=== PATIENT | male | born 1975 | race African-American/Black ===

== ENCOUNTER 2017-04-13 05:38 | Observation (INO) ==
[2017-04-06 13:18] LABS: Basophils % 0.7 % (0.0-0.8); Eosinophils # 0.4 10*3/uL (0.0-0.87); Eosinophils % 8.6 % (0.00-10.9); Hematocrit 45.4 VOL% (42.0-52.0); Hemoglobin 15.3 GM/DL (14.0-18.0); Immature Granulocytes % 0.2 %; Immature Granulocytes Absolute 0.01 #; Lymphocytes # 1.8 10*3/uL (1.4-4.0); Lymphocytes % 41.4 % (21.2-54.2); Mean Corpuscular HGB Conc 33.7 GM/DL (32-36); Mean Corpuscular Hemoglobin 30 PG (27-34); Mean Corpuscular Volume 89.2 FL (87-102); Mean Platelet Volume 9.5 FL (9.6-12.0); Monocytes # 0.3 10*3/uL (0.11-0.8); Monocytes % 6.8 % (1.7-12.7); Neutrophils # 1.9 10*3/uL (1.4-7.4); Neutrophils % 42.3 % (38.7-73.9); Platelet Count 286 T/CUMM (130-400); Red Blood Count 5.09 MC/CUMM (3.8-5.5); Red Cell Distribution Width 11.9 % (9.3-17.3); White Blood Count 4.4 T/CUMM (4-12)
[2017-04-06 13:36] LABS: Bilirubin,Total 0.4 MG/DL (0.2-1.0); Calcium 8.8 MG/DL (8.5-10.1); Osmolality,Calculated 279.4 MOS/KG (273-304); Potassium 4.3 MMOL/L (3.5-5.1); Total Protein 7.5 G/DL (6.4-8.3)
[2017-04-06 13:43] LABS: PT Patient Result 10.3 SECS; Partial Thromboplastin Time 27.5 SECS (0-40)
[2017-04-06 14:07] LABS: Apearance,Urine CLEAR (Clear); Bilirubin,Urine Negative (Negative); Blood, Urine Negative (Negative); Glucose,Urine (UA) Negative (Negative); Ketones,Urine Negative (Negative); Mucus,Urine Occasional /LPF (Occasional); Nitrite,Urine Negative (Negative); Protein,Urine Negative; RBC,Urine <1 /HPF (0-4); Urine Color Yellow (Yellow); Urine Specific Gravity 1.015 (1.001-1.035); Urine Urobilinogen < 2.0 EU/DL (0.2-1.0); WBC,Urine <1 /HPF (0-6)
[2017-04-13] MEDS ORDERED: ceFAZolin 1,000 MG VIAL ONE (07:48)
[2017-04-13] MEDS ORDERED: VANCOMYCIN 1,000 MG VIAL ONE (07:48)
[2017-04-13] MEDS: LACTATED RINGERS 1,000 ML IV SCH ×2 (08:00→13:00)
[2017-04-13] MEDS ORDERED: ceFAZolin 1,000 MG in SYRINGE 1 EACH IV ONE (09:00)
[2017-04-13] MEDS ORDERED: VANCOMYCIN INJ 1,000 MG in SODIUM CHLORIDE 0.9% 250 ML IV ONE (09:00)
[2017-04-13] MEDS ORDERED: MAGNESIUM HYDROXIDE SUSP 30 ML UDCUP PO PRN (10:03)
[2017-04-13] MEDS ORDERED: TEMAZEPAM 7.5 MG CAPSULE PO PRN (10:03)
[2017-04-13] MEDS ORDERED: LACTULOSE 20 GM/30 ML UDCUP PO PRN (10:03)
[2017-04-13] MEDS ORDERED: NALOXONE 0.4 MG/ML VIAL IV PRN (10:03)
[2017-04-13] MEDS ORDERED: ONDANSETRON 4 MG/2 ML VIAL IV PRN (10:03)
[2017-04-13] MEDS ORDERED: BISACODYL 10 MG SUPP RECTAL PRN (10:03)
[2017-04-13] MEDS ORDERED: PROMETHAZINE 25 MG/1 ML VIAL IM PRN (10:03)
[2017-04-13] MEDS ORDERED: MORPHINE 2 MG/1 ML SYRINGE IV PRN (10:03)
[2017-04-13] MEDS ORDERED: DEXTROSE 50% 25 GM/50 ML VIAL IV PRN (10:08)
[2017-04-13] MEDS ORDERED: GLUCAGON 1 MG VIAL IM PRN (10:08)
[2017-04-13] MEDS ORDERED: TRANEXAMIC ACID 1,000 MG/10 ML VIAL IV ONE (10:40)
[2017-04-13] MEDS ORDERED: INSULIN REGULAR 100 UNIT/ML SUBCUT SCH (11:30)
[2017-04-13] MEDS ORDERED: ROPIVACAINE 0.5% 30 ML VIAL ONE (11:49)
[2017-04-13] MEDS ORDERED: MORPHINE PCA 30 MG/30 ML SYRINGE IV ONE (11:55)
[2017-04-13] MEDS: MORPHINE PCA 30 MG/30 ML SYRINGE IV SCH ×2 (12:08→23:37)
[2017-04-13] MEDS ORDERED: ACETAMINOPHEN 1,000 MG/100 ML VIAL IV ONE (12:24)
[2017-04-13] MEDS ORDERED: ONDANSETRON 4 MG/2 ML VIAL ONE (12:24)
[2017-04-13] MEDS ORDERED: MIDAZOLAM 2 MG/2 ML VIAL ONE (12:24)
[2017-04-13] MEDS ORDERED: PROPOFOL 200 MG/20 ML VIAL IV ONE (12:24)
[2017-04-13] MEDS ORDERED: fentaNYL 100 MCG/2 ML VIAL ONE (12:24)
[2017-04-13] MEDS ORDERED: MORPHINE 10 MG/1 ML VIAL IV PRN (12:47)
[2017-04-13] MEDS: ceFAZolin 2,000 MG in PREMIX 1 EACH IV SCH ×2 (15:40→23:16)
[2017-04-13] MEDS: metFORMIN 500 MG TABLET PO SCH (17:20)
[2017-04-13] MEDS: INSULIN LISPRO 100 UNIT/ML SUBCUT SCH (17:20)
[2017-04-13] MEDS: FONDAPARINUX 2.5 MG/0.5 ML SYRINGE SUBCUT SCH (21:19)
[2017-04-13] MEDS: SIMVASTATIN 40 MG TABLET PO SCH (21:20)
[2017-04-13] MEDS: DOCUSATE SODIUM 100 MG CAPSULE PO SCH (21:20)
[2017-04-14 06:05] LABS: Basophils % 0.4 % (0.0-0.8); Eosinophils # 0.1 10*3/uL (0.0-0.87); Eosinophils % 1.1 % (0.00-10.9); Hematocrit 37.6 VOL% (42.0-52.0); Hemoglobin 13.1 GM/DL (14.0-18.0); Immature Granulocytes % 0.2 %; Immature Granulocytes Absolute 0.02 #; Lymphocytes % 23.4 % (21.2-54.2); Mean Corpuscular HGB Conc 34.8 GM/DL (32-36); Mean Corpuscular Hemoglobin 31 PG (27-34); Mean Corpuscular Volume 88.7 FL (87-102); Mean Platelet Volume 9.7 FL (9.6-12.0); Monocytes % 11.2 % (1.7-12.7); Neutrophils # 5.5 10*3/uL (1.4-7.4); Neutrophils % 63.7 % (38.7-73.9); Platelet Count 308 T/CUMM (130-400); Red Blood Count 4.24 MC/CUMM (3.8-5.5); Red Cell Distribution Width 12.1 % (9.3-17.3); White Blood Count 8.6 T/CUMM (4-12)
[2017-04-14 06:22] LABS: Calcium 8.5 MG/DL (8.5-10.1); Osmolality,Calculated 276.7 MOS/KG (273-304); Potassium 4.1 MMOL/L (3.5-5.1)
[2017-04-14] MEDS: INSULIN LISPRO 100 UNIT/ML SUBCUT SCH ×2 (09:05→17:39)
[2017-04-14] MEDS: LISINOPRIL/HCTZ 20-12.5 MG TABLET PO SCH (09:05)
[2017-04-14] MEDS: metFORMIN 500 MG TABLET PO SCH ×2 (09:05→17:30)
[2017-04-14] MEDS: DOCUSATE SODIUM 100 MG CAPSULE PO SCH ×2 (09:05→20:56)
[2017-04-14] MEDS: NF- (Liraglutide [Victoza 3-Pak] 1.8 MG) SUBCUT SCH ×2 (09:08→21:01)
[2017-04-14] MEDS: INSULIN DEGLUDEC 25 UNIT SUBCUT SCH ×2 (09:09→20:56)
[2017-04-14] MEDS: MORPHINE PCA 30 MG/30 ML SYRINGE IV SCH ×2 (09:52→17:58)
[2017-04-14] MEDS ORDERED: ACETAMINOPHEN 325 MG TABLET PO PRN (10:05)
[2017-04-14] MEDS: LACTATED RINGERS 1,000 ML IV SCH (11:14)
[2017-04-14] MEDS: diphenhydrAMINE CAP 25 MG CAPSULE PO PRN (17:58)
[2017-04-14] MEDS: FONDAPARINUX 2.5 MG/0.5 ML SYRINGE SUBCUT SCH (20:56)
[2017-04-14] MEDS: SIMVASTATIN 40 MG TABLET PO SCH (21:22)
[2017-04-15] MEDS: INSULIN LISPRO 100 UNIT/ML SUBCUT SCH ×2 (07:43→17:41)
[2017-04-15] MEDS: metFORMIN 500 MG TABLET PO SCH ×2 (07:46→17:42)
[2017-04-15] MEDS: LISINOPRIL/HCTZ 20-12.5 MG TABLET PO SCH ×2 (07:50→10:56)
[2017-04-15] MEDS: DOCUSATE SODIUM 100 MG CAPSULE PO SCH ×3 (07:50→21:17)
[2017-04-15] MEDS: LACTATED RINGERS 1,000 ML IV SCH (10:56)
[2017-04-15] MEDS: FONDAPARINUX 2.5 MG/0.5 ML SYRINGE SUBCUT SCH (21:17)
[2017-04-15] MEDS: SIMVASTATIN 40 MG TABLET PO SCH (21:17)
[2017-04-15] MEDS: NF- (Liraglutide [Victoza 3-Pak] 1.8 MG) SUBCUT SCH (21:18)
[2017-04-15] MEDS: diphenhydrAMINE CAP 25 MG CAPSULE PO PRN (21:20)
[2017-04-15] MEDS: INSULIN DEGLUDEC 25 UNIT SUBCUT SCH (21:28)
[2017-04-16 08:34] VITALS: BP 123/55
[2017-04-16] MEDS: LISINOPRIL/HCTZ 20-12.5 MG TABLET PO SCH (08:44)
[2017-04-16] MEDS: metFORMIN 500 MG TABLET PO SCH (08:45)
[2017-04-16] MEDS: DOCUSATE SODIUM 100 MG CAPSULE PO SCH (08:46)
[2017-04-16] MEDS: INSULIN LISPRO 100 UNIT/ML SUBCUT SCH (08:46)
[2017-04-16] MEDS: FONDAPARINUX 2.5 MG/0.5 ML SYRINGE SUBCUT SCH (11:27)
== END 2017-04-16 11:55 | disposition home health service (06) ==
LOC: N.OR 05:38 → N.SDSINP 05:39 → INTOOBSV 10:03 → N.3E 12:41 → EDSTATUS 04-19 10:00
PROVIDERS: ADMIT Orthopaedic Surgery; ATTEND Orthopaedic Surgery

== ENCOUNTER 2019-11-05 11:41 | Observation (INO) ==
[2019-11-05] MEDS ORDERED: ALUM/MAG/SIMETH/LIDO VISC 1:1 30 ML BOTTLE PO STA (12:20)
[2019-11-05] MEDS ORDERED: ASPIRIN 325 MG TABLET PO STA (12:20)
[2019-11-05] MEDS ORDERED: hydrALAZINE 20 MG/1 ML VIAL IV STA (12:21)
[2019-11-05 12:27] LABS: Basophils # 0.1 10*3/uL (0.0-0.2); Basophils % 0.8 % (0.0-0.8); Eosinophils # 0.7 10*3/uL (0.0-0.87); Eosinophils % 11.8 % (0.00-10.9); Hematocrit 48.2 VOL% (42.0-52.0); Hemoglobin 16.4 GM/DL (14.0-18.0); Immature Granulocytes % 0.2 %; Immature Granulocytes Absolute 0.01 #; Lymphocytes % 48.3 % (21.2-54.2); Mean Corpuscular Volume 93.2 FL (87-102); Mean Platelet Volume 9.9 FL (9.6-12.0); Neutrophils % 32.9 % (38.7-73.9); Platelet Count 322 T/CUMM (130-400); Red Blood Count 5.17 MC/CUMM (3.8-5.5); Red Cell Distribution Width 12.8 % (9.3-17.3); White Blood Count 6.2 T/CUMM (4-12)
[2019-11-05 12:41] LABS: Albumin 4.2 G/DL (3.4-5.0); Bilirubin,Total 0.4 MG/DL (0.2-1.0); Calcium 9.2 MG/DL (8.5-10.1); Osmolality,Calculated 274.7 MOS/KG (273-304)
[2019-11-05 12:47] LABS: Atypical Lymphocytes Few; Eosinophils 15 % (0-10); Hypochromasia 1+; Lymphocytes 50 % (20-55); Platelet Estimate Adequate; Segmented Neutrophils 28 % (50-85); Total Cells Counted 100
[2019-11-05] MEDS ORDERED: hydrALAZINE 20 MG/1 ML VIAL IV PRN (14:00)
[2019-11-05] MEDS ORDERED: ACETAMINOPHEN 325 MG TABLET PO PRN (14:00)
[2019-11-05] MEDS ORDERED: NITROGLYCERIN SL 0.4 MG TABLET SL PRN (14:00)
[2019-11-05] MEDS ORDERED: ONDANSETRON 4 MG/2 ML VIAL IV PRN (14:00)
[2019-11-05] MEDS ORDERED: GLUCAGON 1 MG VIAL IM PRN (14:00)
[2019-11-05] MEDS ORDERED: DEXTROSE 50% 25 GM/50 ML VIAL IV PRN (14:00)
[2019-11-05 14:39] LABS: Risk Ratio 4.8; Thyroid Stimulating Hormone 0.858 uIU/ml (0.358-3.74); VLDL CHOLESTEROL 24.6 MG/DL
[2019-11-05] MEDS: ENOXAPARIN 40 MG/0.4 ML SYRINGE SUBCUT SCH (16:34)
[2019-11-05] MEDS: PANTOPRAZOLE 40 MG TABLET PO SCH (16:34)
[2019-11-05] MEDS: INSULIN LISPRO 100 UNIT/ML SUBCUT SCH ×2 (16:37→22:05)
[2019-11-05] MEDS: LOSARTAN 50 MG TABLET PO SCH (22:05)
[2019-11-06 04:42] LABS: Basophils # 0.1 10*3/uL (0.0-0.2); Basophils % 0.7 % (0.0-0.8); Eosinophils # 0.8 10*3/uL (0.0-0.87); Eosinophils % 10.3 % (0.00-10.9); Hematocrit 51.3 VOL% (42.0-52.0); Hemoglobin 17.1 GM/DL (14.0-18.0); Immature Granulocytes % 0.1 %; Immature Granulocytes Absolute 0.01 #; Lymphocytes # 3.2 10*3/uL (1.4-4.0); Lymphocytes % 38.7 % (21.2-54.2); Mean Corpuscular HGB Conc 33.3 GM/DL (32-36); Mean Corpuscular Volume 94.5 FL (87-102); Mean Platelet Volume 10.2 FL (9.6-12.0); Monocytes % 6.5 % (1.7-12.7); Neutrophils % 43.7 % (38.7-73.9); Platelet Count 333 T/CUMM (130-400); Red Blood Count 5.43 MC/CUMM (3.8-5.5); White Blood Count 8.2 T/CUMM (4-12)
[2019-11-06 05:03] LABS: Calcium 9.1 MG/DL (8.5-10.1); Osmolality,Calculated 274.7 MOS/KG (273-304)
[2019-11-06] MEDS: INSULIN LISPRO 100 UNIT/ML SUBCUT SCH ×2 (07:20→12:29)
[2019-11-06] MEDS: LOSARTAN 50 MG TABLET PO SCH (09:00)
[2019-11-06] MEDS: PANTOPRAZOLE 40 MG TABLET PO SCH (09:01)
[2019-11-06 09:35] LABS: Barbiturates Screen,Urine Negative (Negative); Benzodiazepines Screen,Urine Negative (Negative); Cannabinoid Screen,Urine Positive (Negative); Opiate Screen,Urine Negative (Negative); Phencyclidine Screen,Urine Negative (Negative)
[2019-11-06 12:33] VITALS: BP 182/96
[2019-11-06] MEDS: ENOXAPARIN 40 MG/0.4 ML SYRINGE SUBCUT SCH (14:30)
[2019-11-06] MEDS ORDERED: hydrALAZINE 25 MG TABLET PO SCH (15:00)
[2019-11-06] MEDS ORDERED: ATORVASTATIN 40 MG TABLET PO SCH (21:00)
== END 2019-11-06 15:02 | disposition home or self-care (01) ==
LOC: N.ED 11:41 → N.EDINP 11:41 → N.TELEN 14:13
PROVIDERS: ADMIT Hospitalist; ATTEND Hospitalist